=== PATIENT | male | born 1980 | race Caucasian/White ===

== ENCOUNTER 2018-01-01 16:11 | Emergency (ER) | payer MEDICAID ==
[2018-01-01] MEDS ORDERED: CELEXA20 MG PO (16:16)
[2018-01-01] MEDS ORDERED: ADDERALL 5 MG TA5 M1 PO (16:17)
[2018-01-01] MEDS ORDERED: OMEPRAZOLE40 MG PO (16:17)
[2018-01-01 17:02] LABS: BASOPHILS 0.3 % (0-2); EOSINOPHILS 0.2 % (0-7); HEMATOCRIT 47.1 % (42.0-54.0); HEMOGLOBIN 16.8 g/dL (13.5-17.5); IMMATURE GRANULOCYTES 0.3 % (0-5); LYMPHOCYTES 7.5 % (15-50); MCH 31.3 pg (26.0-34.0); MCHC 35.7 g/dL (31.0-37.0); MCV 87.9 fL (80.0-100.0); MEAN PLATELET VOLUME 9.4 fL (7.4-10.4); MONOCYTES 8.1 % (2-11); NEUTROPHILS 83.6 % (40-80); PLATELET COUNT 302 10x3/uL (130-400); RBC 5.36 10x6/uL (4.20-6.10); WBC 14.4 10x3/uL (4.8-10.8)
[2018-01-01 17:17] LABS: ALBUMIN 4.3 g/dL (3.4-5.0); ALKALINE PHOSPHATASE 121 U/L (46-116); ALT (SGPT) 37 U/L (10-68); BILIRUBIN - TOTAL 1.08 mg/dL (0.2-1.3); CALC OSMOLALITY 269 mosm/kg (275-300); CALCIUM 9.4 mg/dL (8.5-10.1); CARBON DIOXIDE 28.9 mmol/L (21.0-32.0); CHLORIDE - SERUM 100 mmol/L (98-107); GLUCOSE 96 mg/dL (74-106); POTASSIUM - SERUM 3.4 mmol/L (3.5-5.1); SODIUM 135 mmol/L (136-145); UREA NITROGEN 13 mg/dL (7-18); eGFR NON AFRICAN AMERICAN 89 mL/min (90-120)
[2018-01-01 17:22] LABS: PRO BNP 11 pg/mL (0-125)
[2018-01-01 17:29] LABS: CKMB 4.1 U/L (0.0-3.6); CREATINE KINASE 334 UL (21-232)
[2018-01-01 17:30] LABS: TROPONIN-I < 0.017 ng/mL (0.000-0.060)
[2018-01-01 17:42] VITALS: BP 118/83
[2018-01-01 22:52] LABS: CKMB 0.4 U/L (0.0-3.6); CREATINE KINASE 48 UL (21-232)
[2018-01-01 22:54] LABS: TROPONIN-I < 0.017 ng/mL (0.000-0.060)
== END 2018-01-01 17:42 | disposition home or self-care (01) ==
LOC: D.ER 16:11
PROVIDERS: Emergency Medicine
DX: R07.89 Other chest pain (principal); I10 Essential (primary) hypertension; K21.9 Gastro-esophageal reflux disease without esophagitis